=== PATIENT | female | born 1980 | race Asian ===

== ENCOUNTER → 2016-06-25 | Outpatient (CLI) | payer OTHER | LOC: FIMAGING 09:58 | PROVIDERS: ATTEND Midwife | DX: O09.512 Supervision of elderly primigravida, second trimester (principal); Z3A.20 20 weeks gestation of pregnancy ==

== ENCOUNTER → 2016-08-27 | Outpatient (CLI) | payer OTHER | LOC: FIMAGING 12:56 | PROVIDERS: ATTEND Midwife | DX: O09.513 Supervision of elderly primigravida, third trimester (principal); Z3A.29 29 weeks gestation of pregnancy ==

== ENCOUNTER 2016-10-05 12:32 | Inpatient (IN) | payer OTHER ==
[2016-10-05] MEDS ORDERED: AMPICILLIN SODIUM 2 GM in NS 100 ML IV ONE (13:12)
[2016-10-05] MEDS ORDERED: LR 1,000 ML IV PRN (13:12)
[2016-10-05] MEDS ORDERED: TERBUTALINE SULFATE 1 MG/ML VIAL IV PRN (13:12)
[2016-10-05] MEDS ORDERED: EPSOM SALT 454 GM TP PRN (13:12)
[2016-10-05] MEDS ORDERED: OXYTOCIN/RINGERS LACTATE 1,000 ML IV PRN (13:12)
[2016-10-05] MEDS ORDERED: OLIVE OIL 118 ML BTL MISC PRN (13:12)
[2016-10-05] MEDS ORDERED: BETAMETHASONE IM SYRINGE IM ONE (13:47)
[2016-10-05 13:52] LABS: % IMMATURE GRANULYOCYTES 1.7 % (0.0-1.1); ADD DIFF? NO; ADD MORPH? NO; ADD SCAN? NO; ATYPICAL LYMPHOCYTE FLAG 10 (0-99); FRAGMENT RBC FLAG 0 (0-99); HEMOGLOBIN 11.3 g/dL (12.6-16.3); LEFT SHIFT FLG 20 (0-99); LIPEMIA HEMOLYSIS FLAG 90 (0-99); MEAN CELL HEMOGLOBIN 31.7 pg (27.9-34.1); MEAN CELL HEMOGLOBIN CONCENTR. 34.2 g/dL (32.4-36.7); MEAN CELL VOLUME 92.4 fL (81.5-99.8); MEAN PLATELET VOLUME 9.6 fL (8.7-11.7); PLATELET CLUMPS FLAG 10 (0-99); PLATELET COUNT 188 10^3/uL (150-400); RED BLOOD CELL COUNT 3.57 10^6/uL (4.18-5.33); RED CELL DISTRIBUTION WIDTH 12.5 % (11.5-15.2)
[2016-10-05 15:23] LABS: ALANINE AMINOTRANSFERASE 17 IU/L (9-52); ASPARTATE AMINOTRANSFERASE 21 IU/L (14-46); BILIRUBIN-UNCONJUGATED 0.4 mg/dL (0.0-1.1); CREATININE 0.5 mg/dL (0.6-1.0); GLOMERULAR FILTRATION RATE > 60; LACTATE DEHYDROGENASE 400 IU/L (313-618); URIC ACID 4.5 mg/dL (2.5-6.8)
[2016-10-05 15:36] LABS: BILIRUBIN,TOTAL 0.4 mg/dL (0.1-1.4)
[2016-10-05] MEDS ORDERED: ZOLPIDEM TARTRATE 5 MG TAB PO ONE (18:10)
--- NOTE | 2016-10-05 18:14 | PDGENHP ---
History and Physical - Chief Complaint 36 y.o. at 35 weeks with PPROM - History of Present Illness 36 y.o. at 35 week with PPROM. Denies VB or UCs. Reports good movement. History Information - Allergies/Home Medication List Allergies/Adverse Reactions: No Known Allergies Allergy (Unverified 10/05/16 13:11) I have personally reviewed and updated: family history, medical history, social history, surgical history Past Medical History: AMA, mild left pyelactasis- resolved. - Past Medical History no pertinent PMH - Surgical History Reports: no pertinent surgical hx - Social History Smoking Status: Never smoked Alcohol Use: None Drug Use: None Review of Systems ROS: 10pt was reviewed & negative except for what was stated in HPI & below Constitutional: Reports: no symptoms EENMT: Reports: no symptoms Cardiac: Reports: no symptoms Respiratory: Reports: no symptoms Gastrointestinal: Reports: no symptoms Genitourinary: Reports: no symptoms Muscolosketal: Reports: no symptoms Skin: Reports: no symptoms Neurological: Reports: no symptoms Hematologic/Lymphatic: Reports: no symptoms Immunologic/Allergy: Reports: no symptoms Physical Exam Constitutional: no apparent distress Eyes: PERRL Ears, Nose, Mouth, Throat: moist mucous membranes Cardiovascular: regular rate and rhythym, no murmur, rub, or gallop Respiratory: no respiratory distress, no rales or rhonchi, clear to auscultation Gastrointestinal: soft, non-tender abdomen Skin: warm, normal color Musculoskeletal: full muscle strength Neurologic: AAOx3, sensation intact bilaterally Psychiatric: interacting appropriately, not anxious Lab Data & Imaging Review 10/05/16 13:30 10/05/16 13:30 WBC 11.55 10^3/uL (3.80-9.50) H 10/05/16 13:30 RBC 3.57 10^6/uL (4.18-5.33) L 10/05/16 13:30 Hgb 11.3 g/dL (12.6-16.3) L 10/05/16 13:30 Hct 33.0 % (38.0-47.0) L 10/05/16 13:30 MCV 92.4 fL (81.5-99.8) 10/05/16 13:30 MCH 31.7 pg (27.9-34.1) 10/05/16 13:30 MCHC 34.2 g/dL (32.4-36.7) 10/05/16 13:30 RDW 12.5 % (11.5-15.2) 10/05/16 13:30 Plt Count 188 10^3/uL (150-400) 10/05/16 13:30 MPV 9.6 fL (8.7-11.7) 10/05/16 13:30 Neut % (Auto) 78.8 % (39.3-74.2) H 10/05/16 13:30 Lymph % (Auto) 14.7 % (15.0-45.0) L 10/05/16 13:30 [place] % (Auto) 3.9 % (4.5-13.0) L 10/05/16 13:30 Eos % (Auto) 0.6 % (0.6-7.6) 10/05/16 13:30 Baso % (Auto) 0.3 % (0.3-1.7) 10/05/16 13:30 Nucleat RBC Rel Count 0.0 % (0.0-0.2) 10/05/16 13:30 Absolute Neuts (auto) 9.10 10^3/uL (1.70-6.50) H 10/05/16 13:30 Absolute Lymphs (auto) 1.70 10^3/uL (1.00-3.00) 10/05/16 13:30 Absolute Monos (auto) 0.45 10^3/uL (0.30-0.80) 10/05/16 13:30 Absolute Eos (auto) 0.07 10^3/uL (0.03-0.40) 10/05/16 13:30 Absolute Basos (auto) 0.03 10^3/uL (0.02-0.10) 10/05/16 13:30 Absolute Nucleated RBC 0.00 10^3/uL (0-0.01) 10/05/16 13:30 Immature Gran % 1.7 % (0.0-1.1) H 10/05/16 13:30 Immature Gran # 0.20 10^3/uL (0.00-0.10) H 10/05/16 13:30 BUN 7 mg/dL (7-23) 10/05/16 13:30 Creatinine 0.5 mg/dL (0.6-1.0) L 10/05/16 13:30 Estimated GFR > 60 10/05/16 13:30 Uric Acid 4.5 mg/dL (2.5-6.8) 10/05/16 13:30 Total Bilirubin 0.4 mg/dL (0.1-1.4) 10/05/16 13:30 Conjugated Bilirubin 0.0 mg/dL (0.0-0.5) 10/05/16 13:30 Unconjugated Bilirubin 0.4 mg/dL (0.0-1.1) 10/05/16 13:30 AST 21 IU/L (14-46) 10/05/16 13:30 ALT 17 IU/L (9-52) 10/05/16 13:30 Lactate Dehydrogenase 400 IU/L (313-618) 10/05/16 13:30 Patient ABO/Rh AB POSITIVE 10/05/16 13:30 Antibody Screen NEGATIVE 10/05/16 13:30 Assessment & Plan Assessment: 36 y.o. at 35 weeks with PPROM VSS- afebrile NST- reactive CAT I. Not in labor Plan: Admit to L&D VS and EFM per protocol GBS prophylaxis for unknown status Betamethasone 12.5mg IM Begin pitocin at 0200 on 10/06/16
--- NOTE | 2016-10-05 18:21 | OBPROG ---
OBG Labor Progress Note Assessment/Plan: Assessment: 36 y.o. at 35 weeks with PPROM. VSS- afebrile NST- reactive CAT I GBS unknown Plan: Admit to L&D. Begin GBS prophylaxis for unknown status. VS and EFM per protocol. Betamethasone 12.5 mg IM. Begin pitocin 0200 on 10/06/16 10/05/16 18:17 Subjective: Reports feeling well and denies UCs or pain. Denies VB. Reports good movement. Objective: 10/05/16 13:30 10/05/16 13:30 Patient ABO/Rh AB POSITIVE 10/05/16 13:30 Uric Acid 4.5 mg/dL (2.5-6.8) 10/05/16 13:30 Total Bilirubin 0.4 mg/dL (0.1-1.4) 10/05/16 13:30 Conjugated Bilirubin 0.0 mg/dL (0.0-0.5) 10/05/16 13:30 Unconjugated Bilirubin 0.4 mg/dL (0.0-1.1) 10/05/16 13:30 AST 21 IU/L (14-46) 10/05/16 13:30 ALT 17 IU/L (9-52) 10/05/16 13:30 Lactate Dehydrogenase 400 IU/L (313-618) 10/05/16 13:30 - Physical Exam General Appearance: WD/WN, alert, no apparent distress Estimated Weight: 2501-3400g EENT: normal ENT inspection Neck: non-tender, full range of motion, normal inspection Respiratory: lungs clear, normal breath sounds Cardiac/Chest: regular rate, rhythm Abdomen: non-tender, soft Extremities: non-tender, normal inspection Back: Normal inspection Skin: normal color, warm/dry Neuro/Psych: alert, normal mood/affect, oriented x 3 Oxytocin Orders Assessment - Pre-Induction/Augmentation Assessment Gestational Age: 35 week(s) and 0 day(s) ICD10 Worksheet Patient Problems: Problems Problem Status Onset premature rupture of membranes (PPROM) with unknown onset of labor Acute - ICD10 Problem Qualifiers (1) premature rupture of membranes (PPROM) with unknown onset of labor
[2016-10-05] MEDS: AMPICILLIN SODIUM 1 GM in NS 100 ML IV SCH ×2 (18:24→22:07)
[2016-10-05] MEDS ORDERED: OXYTOCIN/LR *STANDARD DOSE PROTOCOL IV SCH (22:00)
[2016-10-06] MEDS ORDERED: OXYTOCIN/RINGERS LACTATE 1,000 ML IV SCH (02:00)
[2016-10-06] MEDS: AMPICILLIN SODIUM 1 GM in NS 100 ML IV SCH ×5 (02:13→20:55)
--- NOTE | 2016-10-06 07:42 | OBPROG ---
OBG Labor Progress Note Assessment/Plan: Assessment: 36 y.o. at 35 weeks with PPROM. VSS- afebrile NST- reactive CAT I GBS unknown SVE- 2/70/-2 Pitocin at 10 mu. Plan: Continue GBS prophylaxis for unknown status. VS and EFM per protocol. Betamethasone 12.5 mg IM. Continue pitocin for augmentation of labor. 10/06/16 07:39 Subjective: Reports starting to experience mild cramping with uterine contractions. Continues to leak clear amniotic fluid. Denies vaginal bleeding. Reports good movement. Reports resting well last night and very excited about upcoming delivery. Objective: 10/05/16 13:30 10/05/16 13:30 Patient ABO/Rh AB POSITIVE 10/05/16 13:30 Uric Acid 4.5 mg/dL (2.5-6.8) 10/05/16 13:30 Total Bilirubin 0.4 mg/dL (0.1-1.4) 10/05/16 13:30 Conjugated Bilirubin 0.0 mg/dL (0.0-0.5) 10/05/16 13:30 Unconjugated Bilirubin 0.4 mg/dL (0.0-1.1) 10/05/16 13:30 AST 21 IU/L (14-46) 10/05/16 13:30 ALT 17 IU/L (9-52) 10/05/16 13:30 Lactate Dehydrogenase 400 IU/L (313-618) 10/05/16 13:30 - SVE Dilation (cm): 2 Effacement (%): 75 Station: -2 - Physical Exam General Appearance: WD/WN, alert, no apparent distress Estimated Weight: 2501-3400g EENT: normal ENT inspection Neck: non-tender, full range of motion, normal inspection Respiratory: lungs clear, normal breath sounds Cardiac/Chest: regular rate, rhythm Abdomen: non-tender, soft Extremities: normal range of motion, non-tender, normal inspection Back: Normal inspection Skin: normal color, warm/dry Neuro/Psych: alert, normal mood/affect, oriented x 3 Oxytocin Orders Assessment - Pre-Induction/Augmentation Assessment Gestational Age: 35 week(s) and 0 day(s) Estimated Weight: 2501-3400g ICD10 Worksheet Patient Problems: Problems Problem Status Onset premature rupture of membranes (PPROM) with unknown onset of labor Acute - ICD10 Problem Qualifiers (1) premature rupture of membranes (PPROM) with unknown onset of labor
--- NOTE | 2016-10-06 12:46 | OBPROG ---
OBG Labor Progress Note Assessment/Plan: Assessment: 36 y.o. at 35 weeks with PPROM. VSS- afebrile NST- reactive CAT II GBS unknown SVE- 5.5/80/-1 Pitocin at 22 mu. Plan: Continue GBS prophylaxis for unknown status. VS and EFM per protocol. Betamethasone 12.5 mg IM x 2 dose. Continue pitocin for augmentation of labor. 10/06/16 07:39 10/06/16 12:44 Subjective: Patient reports increased discomfort with uterine contractions. Breathing well through UCs. Continues to leak clear amniotic fluid. supportive at bedside. Objective: 10/05/16 13:30 10/05/16 13:30 Patient ABO/Rh AB POSITIVE 10/05/16 13:30 Uric Acid 4.5 mg/dL (2.5-6.8) 10/05/16 13:30 Total Bilirubin 0.4 mg/dL (0.1-1.4) 10/05/16 13:30 Conjugated Bilirubin 0.0 mg/dL (0.0-0.5) 10/05/16 13:30 Unconjugated Bilirubin 0.4 mg/dL (0.0-1.1) 10/05/16 13:30 AST 21 IU/L (14-46) 10/05/16 13:30 ALT 17 IU/L (9-52) 10/05/16 13:30 Lactate Dehydrogenase 400 IU/L (313-618) 10/05/16 13:30 - SVE Dilation (cm): 5 Effacement (%): 80 Station: -1 - Physical Exam General Appearance: WD/WN, alert, mild distress Estimated Weight: 2501-3400g EENT: normal ENT inspection Neck: non-tender, full range of motion, normal inspection Respiratory: lungs clear, normal breath sounds Cardiac/Chest: regular rate, rhythm Abdomen: non-tender, soft Extremities: non-tender, normal inspection Back: Normal inspection Skin: normal color, warm/dry Neuro/Psych: alert, normal mood/affect, oriented x 3 Oxytocin Orders Assessment - Pre-Induction/Augmentation Assessment Gestational Age: 35 week(s) and 0 day(s) Estimated Weight: 2501-3400g ICD10 Worksheet Patient Problems: Problems Problem Status Onset premature rupture of membranes (PPROM) with unknown onset of labor Acute - ICD10 Problem Qualifiers (1) premature rupture of membranes (PPROM) with unknown onset of labor
[2016-10-06] MEDS ORDERED: fentaNYL 2MCG/ML/BUP 0.1% RTU 100 ML BAG EP ONE (13:54)
[2016-10-06] MEDS ORDERED: PHENYLEPHRINE HCL 100 MCG/ML SYR ONE (13:55)
[2016-10-06] MEDS ORDERED: fentaNYL 100 MCG/2 ML INJ ONE (13:55)
[2016-10-06] MEDS ORDERED: BUPIVACAINE 0.25% 30 ML SDV ONE (13:55)
[2016-10-06] MEDS ORDERED: BETAMETHASONE IM SYRINGE IM ONE (14:42)
[2016-10-06] MEDS ORDERED: PHENYLEPHRINE HCL 100 MCG/ML SYR IVP PRN (15:21)
[2016-10-06] MEDS ORDERED: ONDANSETRON 4 MG/2 ML VIAL IVP PRN (15:21)
--- NOTE | 2016-10-06 15:25 | PREANESOB ---
Obstetric Pre-Anesthesia Info - General Info Proposed Procedure: Labor and delivery with pitocin. : 1 Para: 0 WBD: 35 - Info Status: Premature Monitors: External FHR Baseline (bpm): 120 FHR Pattern: Reassuring - Labor Status Cervical Dilation per last OB SVE: 5 Station per last OB SVE: -1 Pitocin: In Use Indications for Labor Analgesia: Induction of Labor, Pain Control Labor Epidural: Proposed (SROM.) Anesthesia ROS: Heart murmur (asymptomatic). Allergies/Adverse Reactions: Allergy/AdvReac Type Severity Reaction Status Date / Time No Known Allergies Allergy Unverified 10/05/16 13:11 Home Medications: Medication Instructions Recorded Vit27&Calcium/Iron/FA 1 each PO DAILY 10/05/16 [ Rx 1 Tablet (RX)] Visit Medications: Generic Name Dose Route Start Last Admin Trade Name Freq PRN Reason Stop Dose Admin Ampicillin Sodium 1 gm/ Sodium 100 mls @ 200 mls/hr 10/05/16 17:13 10/06/16 06:08 Chloride IV 11/04/16 17:12 100 mls Q4H REGINO Administration Protocol Lactated Ringer's 1,000 mls @ 0 mls/hr 10/05/16 13:12 10/06/16 02:14 Lr IV 04/03/17 13:11 1,000 mls PRN PRN Administration SEE PROTOCOL CONDITIONS Protocol Per Protocol Oxytocin/Lactated Ringer's 1,000 mls @ 150 mls/hr 10/05/16 13:12 Pitocin 20 Units/Lr (Premix) IV PRN PRN Post- bleeding Oxytocin/Lactated Ringer's 1,000 mls @ 0 mls/hr 10/06/16 02:00 Pitocin 20 Units/Lr (Premix) IV 04/04/17 01:59 CONT REGINO Protocol Per Protocol Oxytocin/Lactated Ringer's 500 mls @ 0 mls/hr 10/05/16 22:00 10/06/16 02:13 Pitocin 30 Units/Lr (Premix) IV 04/03/17 21:59 500 mls CONT REGINO Administration Protocol Per Protocol Ibuprofen 600 mg 10/05/16 13:12 Motrin PO 04/03/17 13:11 Q6HRS PRN post , inflammation Magnesium Sulfate 454 gm 10/05/16 13:12 Epsom Salt TP 12/02/17 13:11 PRN PRN perineal discomfort [place] Oil 118 ml 10/05/16 13:12 Sweet Oil MISC 04/03/17 13:11 ONCE PRN preneal massage Terbutaline Sulfate 0.25 mg 10/05/16 13:12 [place] IV 04/03/17 13:11 ONCE PRN Tachysystole Discontinued Medications Generic Name Dose Route Start Last Admin Trade Name Freq PRN Reason Stop Dose Admin Betamethasone Acet/Betameth SodPhos 12 mg 10/05/16 13:47 10/05/16 14:20 [place] Im Syringe IM 10/05/16 13:48 12 mg ONCE ONE Administration Betamethasone Acet/Betameth SodPhos 12 mg 10/06/16 14:42 10/06/16 14:57 [place] Im Syringe IM 10/06/16 14:43 12 mg ONCE ONE Administration Bupivacaine HCl Confirm 10/06/16 13:55 Sensorcaine 0.25% Sdv Administered 10/06/16 13:56 Dose 30 ml .ROUTE .STK-MED ONE Fentanyl Confirm 10/06/16 13:55 Sublimaze Administered 10/06/16 13:56 Dose 100 mcg .ROUTE .STK-MED ONE Fentanyl/Bupivacaine HCl Confirm 10/06/16 13:54 Fentanyl/Bupivacaine/Ns 2 Mcg/Ml 0.1% (Premix Administered 10/06/16 13:55 Dose 100 ml EP .STK-MED ONE Ampicillin Sodium 2 gm/ Sodium 110 mls @ 220 mls/hr 10/05/16 13:12 10/05/16 14:04 Chloride IV 10/05/16 13:41 110 mls ONCE ONE Administration Protocol Phenylephrine HCl Confirm 10/06/16 13:55 Neosynephrine Administered 10/06/16 13:56 Dose 1,000 mcg .ROUTE .STK-MED ONE Zolpidem Tartrate 10 mg 10/05/16 18:10 10/06/16 02:06 Ambien PO 10/05/16 18:11 Not Given ONCE ONE - Anesthesia History Response to Local Anesthetics: Normal Family Anesthesia History: Not Applicable - Social History Substance Use/Abuse: Denies - Focused Exam Blood Pressure: 125/73 Heart Rate: 71 Respiratory Rate: 20 Height/Weight (Nursing): Height 162.56 cm Weight 62.142 kg Physical Exam: Within normal limits. ASA Status: II Labs: 10/05/16 13:30 10/05/16 13:30 Patient ABO/Rh AB POSITIVE 10/05/16 13:30 Uric Acid 4.5 mg/dL (2.5-6.8) 10/05/16 13:30 Total Bilirubin 0.4 mg/dL (0.1-1.4) 10/05/16 13:30 Conjugated Bilirubin 0.0 mg/dL (0.0-0.5) 10/05/16 13:30 Unconjugated Bilirubin 0.4 mg/dL (0.0-1.1) 10/05/16 13:30 AST 21 IU/L (14-46) 10/05/16 13:30 ALT 17 IU/L (9-52) 10/05/16 13:30 Lactate Dehydrogenase 400 IU/L (313-618) 10/05/16 13:30 - Plan Anesthetic Plan: CSE Consent Signed and on Chart: Yes Patient/Guardian Understands and Agrees to Plan: Yes General Comments: Written consent signed after epidural due rto patient discomfort.
--- NOTE | 2016-10-06 15:27 | POSTANESTH ---
Post Anesthetic Evaluation Cardiovascular Status: Normal, Stable Respiratory Status: Normal, Stable, Similar to Pre-op Cond. Level of Consciousness/Mental Status: Can Participate in Eval, Alert and Oriented (Tolerated CSE well, stable, comfortable.) Pain Control: Adequate, Prn Tx Ordered Nausea/Vomiting Control: Adequate, Prn Tx Ordered Complications Possibly Related to Anesthesia: None Noted
[2016-10-06] MEDS ORDERED: LR 500 ML IV SCH (15:30)
[2016-10-06] MEDS ORDERED: fentaNYL 2MCG/ML/BUP 0.1% RTU 100 ML EP SCH (15:30)
[2016-10-06] MEDS ORDERED: OLIVE OIL 118 ML BTL ONE (16:48)
[2016-10-06] MEDS ORDERED: LIDOCAINE 1% 300 MG/30 ML SDV ONE (16:48)
[2016-10-06] MEDS ORDERED: OXYTOCIN 10 UNIT/ML VIAL ONE (16:48)
[2016-10-06] MEDS ORDERED: MISOPROSTOL 200 MCG TAB ONE (16:48)
[2016-10-06] MEDS ORDERED: AMMONIA AROMATIC 1 EACH AMP IH ONE (16:48)
[2016-10-06] MEDS ORDERED: HYDROCORTISONE 0.5% CREAM TP PRN (17:21)
[2016-10-06] MEDS ORDERED: HYDROCODONE/APAP 5/325 TAB PO PRN (17:21)
[2016-10-06] MEDS ORDERED: SIMETHICONE 80 MG TAB CHEW PO PRN (17:21)
--- NOTE | 2016-10-06 17:25 | OBDEL ---
Info Type: Vaginal GBS+: No (unknown) Antibiotic Used for + GBS: Ampicillin Number of Antibiotic Doses Given: 7 Indications for Delivery: PPROM Vaginal Delivery - Labor and Delivery Onset of Contractions Date: 10/06/16 Onset of Contractions Time: 07:00 Onset of Contractions Type: Augmented Rupture of Membranes Date: 10/05/16 Rupture of Membranes Time: 02:00 Rupture of Membranes Type: Premature Amniotic Fluid Color: Clear Dilation Complete Date: 10/06/16 Dilation Complete Time: 16:20 Placenta Delivery Date: 10/06/16 Placenta Delivery Time: 17:08 Total Hours of Labor: 10 Laceration: Other (Specify) (left labial) Repair: 3-0, Vicryl Vaginal Sponge Count Correct: Yes Vaginal Needle Count Correct: Yes Vaginal Sweep Performed: Yes EBL: 350 Delivery Events: None - Medications Labor Augmentation/Induction Methods Used: Pitocin Labor Augmentation/Induction Indication: Other (Specify) (PPROM) [place] [facility] [place] Delivery Date: 10/06/16 Delivery Time: 17:02 Sex of : Female ICD10 Worksheet Patient Problems: Problems Problem Status Onset premature rupture of membranes (PPROM) with unknown onset of labor Acute - ICD10 Problem Qualifiers (1) premature rupture of membranes (PPROM) with unknown onset of labor
[2016-10-06] MEDS ORDERED: OXYTOCIN/RINGERS LACTATE 500 ML IV SCH (17:30)
[2016-10-06] MEDS: IBUPROFEN 600 MG TAB PO PRN (18:17)
[2016-10-07] MEDS: IBUPROFEN 600 MG TAB PO PRN ×4 (00:22→18:34)
[2016-10-07 05:54] LABS: ABSOLUTE IMMATURE GRANULOCYTES 0.09 10^3/uL (0.00-0.10); ADD DIFF? NO; ADD MORPH? NO; ADD SCAN? NO; ATYPICAL LYMPHOCYTE FLAG 0 (0-99); FRAGMENT RBC FLAG 0 (0-99); HEMOGLOBIN 14.5 g/dL (12.6-16.3); LEFT SHIFT FLG 10 (0-99); LIPEMIA HEMOLYSIS FLAG 80 (0-99); MEAN CELL HEMOGLOBIN 31.7 pg (27.9-34.1); MEAN CELL HEMOGLOBIN CONCENTR. 33.7 g/dL (32.4-36.7); MEAN CELL VOLUME 93.9 fL (81.5-99.8); MEAN PLATELET VOLUME 9.5 fL (8.7-11.7); PLATELET CLUMPS FLAG 0 (0-99); PLATELET COUNT 112 10^3/uL (150-400); RED BLOOD CELL COUNT 4.58 10^6/uL (4.18-5.33)
[2016-10-07] MEDS: DOCUSATE SODIUM 100 MG CAP PO PRN ×2 (08:03→21:32)
--- NOTE | 2016-10-07 08:51 | OBPP ---
Progress Note Assessment/Plan: Assessment: 36 y/o PPD#1 s/p - doing well, baby stable in nursery Plan: 1) Continue routine PP care 2) AB+/RI 3) Discharge home tomorrow 10/07/16 08:50 Subjective: Pt feeling well, no complaints, lochia diminishing. Objective: 10/07/16 05:35 10/05/16 13:30 Patient ABO/Rh AB POSITIVE 10/05/16 13:30 Uric Acid 4.5 mg/dL (2.5-6.8) 10/05/16 13:30 Total Bilirubin 0.4 mg/dL (0.1-1.4) 10/05/16 13:30 Conjugated Bilirubin 0.0 mg/dL (0.0-0.5) 10/05/16 13:30 Unconjugated Bilirubin 0.4 mg/dL (0.0-1.1) 10/05/16 13:30 AST 21 IU/L (14-46) 10/05/16 13:30 ALT 17 IU/L (9-52) 10/05/16 13:30 Lactate Dehydrogenase 400 IU/L (313-618) 10/05/16 13:30 Temp Pulse Resp BP Pulse Ox 36.2 C 65 16 96/68 L 97 10/06/16 22:55 10/06/16 22:55 10/06/16 22:55 10/06/16 22:55 10/06/16 22:55 Uterine Position/Fundal Height: Umbilicus -2 Uterine Tone: Firm Physical Exam - Physical Exam General Appearance: WD/WN, alert, no apparent distress Respiratory: lungs clear Cardiac/Chest: regular rate, rhythm
[2016-10-07 10:03] LABS: % IMMATURE GRANULYOCYTES 1.4 % (0.0-1.1); ABSOLUTE IMMATURE GRANULOCYTES 0.24 10^3/uL (0.00-0.10); ADD DIFF? NO; ADD MORPH? NO; ADD SCAN? NO; ATYPICAL LYMPHOCYTE FLAG 0 (0-99); FRAGMENT RBC FLAG 0 (0-99); HEMATOCRIT 27.7 % (38.0-47.0); HEMOGLOBIN 9.5 g/dL (12.6-16.3); LEFT SHIFT FLG 30 (0-99); LIPEMIA HEMOLYSIS FLAG 90 (0-99); MEAN CELL HEMOGLOBIN 31.9 pg (27.9-34.1); MEAN CELL HEMOGLOBIN CONCENTR. 34.3 g/dL (32.4-36.7); MEAN PLATELET VOLUME 9.8 fL (8.7-11.7); PLATELET CLUMPS FLAG 10 (0-99); PLATELET COUNT 183 10^3/uL (150-400); RED BLOOD CELL COUNT 2.98 10^6/uL (4.18-5.33); RED CELL DISTRIBUTION WIDTH 12.8 % (11.5-15.2)
[2016-10-07 10:13] VITALS: O2SAT 96
[2016-10-07 21:45] VITALS: BP 118/77; PULSE 68; RESP 16; TEMP 98
[2016-10-08] MEDS: IBUPROFEN 600 MG TAB PO PRN ×2 (02:40→08:25)
--- NOTE | 2016-10-08 08:00 | OBGCSDC ---
General Delivery Information - General Info : 1 Para: 1 Delivery Physician/CNM: Yoselin Mcleod Admission Date: 10/05/16 Labs: Patient ABO/Rh AB POSITIVE 10/05/16 13:30 Hct 27.7 % (38.0-47.0) L D 10/07/16 09:40 Vaginal - Diagnosis Labor: Augmented Rupture of Membranes Type: Premature Amniotic Fluid Color: Clear Laceration: Other (Specify) (left labial) Repair: 3-0, Vicryl Delivery Events: None - Operations/Procedures L&D Analgesia/Anesthesia Type: Epidural - Delivery L&D Analgesia/Anesthesia Type: Epidural [place] [facility] [place] Delivery Date: 10/06/16 Delivery Time: 17:02 ERIC: 11/09/16 Gestational Age: 35 week(s) and 3 day(s) Sex of Infant: Female Weight (gm): 2410 kg Score (1 Min): 7 Score (5 Min): 8 Discharge Information - Discharge Information Discharge Medications: Ibuprofen, Vitamins Condition: Good Instruction/Follow Up: Six Weeks Discharge Physician/CNM: Yoselin Mcleod
[2016-10-08] MEDS: DOCUSATE SODIUM 100 MG CAP PO PRN (08:25)
[2016-10-08] MEDS ORDERED: IRON POLYSAC/IRON HEME 28 MG TAB PO SCH (09:00)
== END 2016-10-08 18:30 | disposition home or self-care (01) | DRG 775 ==
LOC: FLD 12:32 → FOB 10-06 20:00
PROVIDERS: ADMIT Midwife; ATTEND Midwife
PROC: 10E0XZZ Delivery of Products of Conception, External Approach (ICD-10-PCS; principal; 2016-10-06)
PROC: 0HQ9XZZ Repair Perineum Skin, External Approach (ICD-10-PCS; principal; 2016-10-06)
DX: O60.14X0 Preterm labor third trimester with preterm delivery third trimester, not applicable or unspecified (principal); Z37.0 Single live birth; Z3A.35 35 weeks gestation of pregnancy; O99.824 Streptococcus B carrier state complicating childbirth; O70.0 First degree perineal laceration during delivery
CPT/HCPCS: J0290; J0702; J2370; J2590; J3010

== ENCOUNTER → 2016-11-20 | Outpatient (CLI) | payer OTHER | LOC: BMCIMAGING 10:54 | PROVIDERS: ATTEND Podiatrist Foot & Ankle Surgery | DX: M25.872 Other specified joint disorders, left ankle and foot (principal) ==